=== PATIENT | female | born 1990 | race Caucasian/White ===

== ENCOUNTER 2017-09-07 07:44 | Emergency (ER) | payer OTHER ==
--- NOTE | 2017-09-07 07:47 | PDOC ---
History of Present Illness - General Chief Complaint: Pain Stated Complaint: NECK AND BACK PAIN Time Seen by Provider: 09/07/17 07:47 History Source: Patient, Old Records Exam Limitations: No Limitations - History of Present Illness Initial Comments: 09/07/17 08:10 26y/o healthy female with no severe past medical history other than episodic back spasm/pain currently under evaluation by a chiropractor, presents with an exacerbation of her left trapezius pain since yesterday. No inciting factors, no injuries, reports her typical gradual onset, constant throbbing left trapezius pain with intermittent spasms, associated with some paresthesias in the area and occasionally to her elbow. No airway or neck issues, no weakness, no sensory loss. No fevers or chills, no shortness of breath. Patient applied a hot compress and to naproxen last night and was able to sleep , presents this morning with persistent stiffness and pain to the area. In the past, she has been treated with muscle relaxants, anti-inflammatories, and opiates and 1 course of steroids in the past as well. Her chiropractors trying to get an MRI performed, which she has never had, and she is awaiting approval. 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 Past History - Past Medical History Allergies/Adverse Reactions: Allergies Allergy/AdvReac Type Severity Reaction Status Date / Time clarithromycin [From Biaxin] Allergy Unknown Rash Verified 09/07/17 07:45 Home Medications: Ambulatory Orders Diazepam [Valium] 5 mg PO Q8H PRN #10 tablet MDD 3 tabs 09/07/17 Naproxen 500 mg PO BID PRN #30 tablet 09/07/17 - Immunization History Immunization Up to Date: Yes - Suicide/Smoking/Psychosocial Hx Smoking History: Never smoked Hx Alcohol Use: Yes (SOCIAL) Drug/Substance Use Hx: No Substance Use Type: None Review of Systems - Review of Systems Constitutional: No: Chills, Fever, Night Sweats HEENTM: No: Throat Pain, Throat Swelling Respiratory: No: Cough, Shortness of Breath Cardiac (ROS): No: Chest Pain Integumentary: No: Bruising, Rash Neurological: Yes: Paresthesia. No: Headache, Weakness *Physical Exam - Physical Exam Comments: 09/07/17 08:14 Afebrile. Urine pending. GENERAL: The patient is awake, alert, and fully oriented, in no acute distress. Seated comfortably in stretcher but limited ROM of neck 2/2 discomfort. HEAD: Normal with no signs of trauma. EYES: Pupils equal, round and reactive to light, extraocular movements intact, sclera anicteric, conjunctiva clear. LUNGS: clear and symmetric bilaterally EXTREMITIES: Normal range of motion, no edema. no trapezial swelling or bruising or erythema. There is some spasm along the upper L trapezius with some discomfort to palpation, otherwise no midline or focally reproducible ttp. No meningismus. NEUROLOGICAL: Normal speech, normal gait. 5/5 motor x4 extremities. PSYCH: Normal mood, normal affect. SKIN: Warm, Dry, normal turgor, no rashes or lesions noted. Medical Decision Making - Medical Decision Making 09/07/17 08:16 26-year-old female presents with atraumatic left trapezial muscle strain, acute on chronic. Possible cervical radicular component, but neurologically intact on this visit. No evidence of infectious or cardiopulmonary process. Patient is pending outpatient MRI, will refer to documentation specialist and pain management Spasm control with Valium, Toradol injection, patient declining opiates No indication for emergent imaging, will reassess. 09/07/17 09:08 Feels a lot better and would like to go home. Remains neuro intact, mom at bedside. They agree with d/c plan on naproxen and valium (does not want opiates ) and understands return criteria. *DC/Admit/Observation/Transfer Diagnosis at time of Disposition: Muscle spasm Trapezius muscle strain Qualifiers: Encounter type: initial encounter Laterality: left Qualified Code(s): S46.812A - Strain of other muscles, fascia and tendons at shoulder and upper arm level, left arm, initial encounter - Discharge Dispostion Disposition: HOME Condition at time of disposition: Improved - Prescriptions Prescriptions: Diazepam [Valium] 5 mg PO Q8H PRN #10 tablet MDD 3 tabs PRN Reason: Muscle Spasms Naproxen 500 mg PO BID PRN #30 tablet PRN Reason: Pain - Referrals Referrals: Donnell Osorio MD [Staff Physician] - London Bowden MD [Staff Physician] - - Patient Instructions Printed Discharge Instructions: DI for Muscle Strain, DI for Cervical Radiculopathy Additional Instructions: Activity as tolerated. Stay hydrated. Naproxen twice daily as prescribed for 5 days, then as needed for pain. Valium as prescribed as needed for muscle spasm. Continue your medications as previously prescribed by your physician. You should follow up with your primary doctor as soon as possible regarding today's emergency department visit. You should also see a documentation specialist, consider calling Dr. Osorio or Dr. Bowden for an appointment. They should be able to assist in obtaining any needed imaging. Return to the emergency department for any new or concerning symptoms, particularly persistent or worsening pain, persistent numbness or weakness, severe swelling or discoloration, fevers or chills. - Post Discharge Activity
[2017-09-07 07:51] VITALS: BP 123/79; PULSE 86; TEMP 98.4; BMI 27.3
[2017-09-07] MEDS ORDERED: diazePAM 5 MG TABLET PO ONE (08:17)
[2017-09-07] MEDS ORDERED: diazePAM 5 MG TABLET ONE (08:45)
[2017-09-07] MEDS ORDERED: KETOROLAC TROMETHAMINE 30 MG/1 ML VIAL ONE (08:46)
[2017-09-07] MEDS ORDERED: KETOROLAC TROMETHAMINE 60 MG/2 ML VIAL IM ONE (08:49)
== END 2017-09-07 09:20 | disposition home or self-care (01) ==
LOC: FER 07:44
PROC: 3E0233Z Introduction of Anti-inflammatory into Muscle, Percutaneous Approach (ICD-10-PCS; principal; 2017-09-07)
DX: S46.812A Strain of other muscles, fascia and tendons at shoulder and upper arm level, left arm, initial encounter (principal); X58.XXXA Exposure to other specified factors, initial encounter; Y93.89 Activity, other specified; Y92.9 Unspecified place or not applicable
CPT/HCPCS: 84703; 99282-25